=== PATIENT | female | born 1955 | race Caucasian/White ===

== ENCOUNTER → 2018-08-28 | Outpatient (CLI) | payer OTHER ==
[2018-08-19 11:12] VITALS: BP 126/66
[~2018-08-28] MED LIST: HYDR-2761 PO
== END | disposition home or self-care (01) ==
LOC: PMGWOUND 08:48
PROVIDERS: ATTEND Emergency Medicine Undersea and Hyperbaric Medicine
DX: L97.222 Non-pressure chronic ulcer of left calf with fat layer exposed (principal); I87.2 Venous insufficiency (chronic) (peripheral); Z90.49 Acquired absence of other specified parts of digestive tract
CPT/HCPCS: 11042; 11045

== ENCOUNTER → 2018-08-31 | Outpatient (CLI) | payer OTHER ==
[2018-08-19 11:12] VITALS: BP 126/66
== END | disposition home or self-care (01) ==
LOC: PMGWOUND 11:26
PROVIDERS: ATTEND Emergency Medicine Undersea and Hyperbaric Medicine
DX: L97.222 Non-pressure chronic ulcer of left calf with fat layer exposed (principal); I87.2 Venous insufficiency (chronic) (peripheral); Z90.49 Acquired absence of other specified parts of digestive tract
CPT/HCPCS: 11042; 11045; 29581

== ENCOUNTER → 2018-09-06 | Outpatient (CLI) | payer OTHER ==
[2018-08-19 11:12] VITALS: BP 126/66
--- NOTE | 2018-09-06 16:25 | RAD ---
Left lower extremity venous insufficiency ultrasound exam, 09/06/2018: HISTORY: Nonhealing left palacio ulcer Duplex evaluation of the saphenous veins in the left lower extremity was performed including grayscale, color-flow and spectral Doppler analysis. There is significant reflux in the left greater saphenous vein from the level of the groin down through the proximal calf. The greater saphenous vein cannot be visualized distal to this level. Near the saphenofemoral junction level the greater saphenous vein measures 1.1 cm and demonstrates a reflux time of 2.5 seconds. There are prominent venous varicosities in the distal thigh and lower leg which extend into the region of the patient's wound. The lesser saphenous vein in the left calf is small, tortuous and poorly visualized. Incidental note is made of a 5.6 x 1.5 x 4.1 cm fluid collection in the popliteal fossa compatible with a Frausto's cyst. IMPRESSION: 1. Significant reflux in the left greater saphenous vein as described above. 2. Moderate superficial varicosities in the distal thigh and lower leg. 3. Moderate sized popliteal cyst. Electronically signed by: Alex Sin MD (09/06/2018 4:22 PM) [facility]
== END | disposition home or self-care (01) ==
LOC: US 14:52
PROVIDERS: ATTEND Emergency Medicine Undersea and Hyperbaric Medicine
DX: L97.222 Non-pressure chronic ulcer of left calf with fat layer exposed (principal); M71.22 Synovial cyst of popliteal space [Baker], left knee; I83.92 Asymptomatic varicose veins of left lower extremity
CPT/HCPCS: 93971

== ENCOUNTER → 2018-09-12 | Outpatient (CLI) | payer OTHER ==
[2018-08-19 11:12] VITALS: BP 126/66
== END | disposition home or self-care (01) ==
LOC: PMGWOUND 11:17
PROVIDERS: ATTEND Emergency Medicine Undersea and Hyperbaric Medicine
DX: L97.222 Non-pressure chronic ulcer of left calf with fat layer exposed (principal); I87.2 Venous insufficiency (chronic) (peripheral); Z90.49 Acquired absence of other specified parts of digestive tract
CPT/HCPCS: 29581; 97597

== ENCOUNTER → 2018-09-19 | Outpatient (CLI) | payer OTHER ==
[2018-08-19 11:12] VITALS: BP 126/66
== END | disposition home or self-care (01) ==
LOC: PMGWOUND 12:45
PROVIDERS: ATTEND Emergency Medicine Undersea and Hyperbaric Medicine
DX: L97.222 Non-pressure chronic ulcer of left calf with fat layer exposed (principal); I87.2 Venous insufficiency (chronic) (peripheral); Z90.49 Acquired absence of other specified parts of digestive tract
CPT/HCPCS: 29581

== ENCOUNTER → 2018-09-26 | Outpatient (CLI) | payer OTHER ==
[2018-08-19 11:12] VITALS: BP 126/66
== END | disposition home or self-care (01) ==
LOC: PMGWOUND 12:32
PROVIDERS: ATTEND Emergency Medicine Undersea and Hyperbaric Medicine
DX: L97.222 Non-pressure chronic ulcer of left calf with fat layer exposed (principal); I87.2 Venous insufficiency (chronic) (peripheral); Z90.49 Acquired absence of other specified parts of digestive tract
CPT/HCPCS: 11042; 29581

== ENCOUNTER → 2018-10-03 | Outpatient (CLI) | payer OTHER ==
[2018-08-19 11:12] VITALS: BP 126/66
== END | disposition home or self-care (01) ==
LOC: PMGWOUND 11:30
PROVIDERS: ATTEND Emergency Medicine Undersea and Hyperbaric Medicine
DX: L97.222 Non-pressure chronic ulcer of left calf with fat layer exposed (principal); I87.2 Venous insufficiency (chronic) (peripheral); Z91.040 Latex allergy status; Z88.8 Allergy status to other drugs, medicaments and biological substances; Z90.49 Acquired absence of other specified parts of digestive tract
CPT/HCPCS: 11042; 29581

== ENCOUNTER → 2018-10-05 | Outpatient (CLI) | payer OTHER ==
[2018-08-19 11:12] VITALS: BP 126/66
[~2018-10-05] MED LIST changes: +LIDOCAINE 1%/EPI 1:100,000 50 ML, SODIUM BICARBONATE VIAL 5 MEQ in IV NORMAL SALINE 100... SQ STA
--- NOTE | 2018-10-05 11:36 | RAD ---
MR#: [id number] Date of Study: 10/05/2018 Ordering Physician: ANURAG RODRIGUEZ, Referring Physician: ANURAG RODRIGUEZ, Tech: Namita Valera RDMS, REJIT, RTR APPROVED REPORT Patient Location : OUT-PATIENT Indications Lower Extremity Pain : Right Lower Extremity Edema : Right Greater Saphenous Veins (GSV) Significant venous relux noted in the RIGHT GSV at the following levels : Superficial Femoral Junctio n, Proximal Thigh, Mid Thigh, Distal Thigh Findings Grayscale images of the right saphenofemoral junction and greater and lesser saphenous veins do not r eveal any obvious evidence of thrombus. There is a large incidental Frausto cyst noted on the right side measuring 7.5 x 5 x 1.9 cm. The right great saphenous vein measures approximately 5 mm in greatest diameter and has a reflux time of approximately 2.8 seconds. There is a incompetent kier drier noted approximately 18 centimeters u p from the ankle. The kier drier has a reflux time of 2.2 seconds and measures approximate 6 mm. The right lesser saphenous vein does not show any evidence of reflux. Critical Notification Critical Value: No <Conclusion> 1. Positive for reflux in the right greater saphenous vein and kier drier as described above. Signed by : Nickolas Bee, Electronically Approved : 10/05/2018 11:35:49
--- NOTE | 2018-10-05 11:58 | CARD ---
MR#: [id number] Date of Study: 10/05/2018 Ordering Physician: ANURAG RODRIGUEZ, Referring Physician: ANURAG RODRIGUEZ Tech: Lissa Muro RDCS APPROVED REPORT EXAM: Two-dimensional and M-mode echocardiogram with Doppler and color Doppler. Other Information Quality : AverageHR: 76bpm Rhythm : NSR INDICATION Venous Insufficiency 2D DIMENSIONS RVDd2.8 (2.9-3.5cm)Left Atrium(2D)3.3 (1.6-4.0cm) IVSd0.9 (0.7-1.1cm)Aortic Root(2D)3.0 (2.0-3.7cm) LVDd4.9 (3.9-5.9cm)LVOT Diameter2.0 (1.8-2.4cm) PWd1.0 (0.7-1.1cm)LVDs3.4 (2.5-4.0cm) FS (%) 30.2 %SV63.7 ml LVEF(%)57.4 (>50%) M-Mode DIMENSIONS Left Atrium(MM)3.79 (2.5-4.0cm)Aortic Root3.07 (2.2-3.7cm) Aortic Valve AoV Peak Shade.123.2cm/sAoV VTI26.4cm AO Peak GR.6.1mmHgLVOT Peak Shade.76.9cm/s AO Mean GR.3mmHgAVA (VMAX)1.94cm2 JAIRO (VTI)2.00cm2 Mitral Valve MV E Uwvqvxjp81.2cm/sMV DECEL PYOV580ee MV A Sduqxilx12.8cm/sE/A Ratio1.0 MV A Fxlcuozq458xn Pulmonary Valve PV Peak Krvyqfrq836.6cm/s Tricuspid Valve TR P. Ymrnohxd270rg/sRAP IOVRNUZY1qgYi TR Peak Gr.20jkNhRHUQ38prSq LEFT VENTRICLE The left ventricle is normal size. There is normal left ventricular wall thickness. The left ventricu lar systolic function is normal and the ejection fraction is within normal range. The Ejection Fracti on is 55-60%. There is normal LV segmental wall motion. Transmitral Doppler flow pattern is Grade I-a bnormal relaxation pattern. RIGHT VENTRICLE The right ventricle is normal size. There is normal right ventricular wall thickness. The right ventr icular systolic function is normal. ATRIA The left atrium size is normal. The right atrium size is normal. The interatrial septum is intact wit h no evidence for an atrial septal defect or patent foramen ovale as noted on 2-D or Doppler imaging. AORTIC VALVE The aortic valve is normal in structure and function. The aortic valve is trileaflet. Doppler and Col or Flow revealed no significant aortic regurgitation. There is no significant aortic valvular stenosi s. MITRAL VALVE The mitral valve is normal in structure and function. There is no evidence of mitral valve prolapse. There is no mitral valve stenosis. Doppler and Color Flow revealed no mitral valve regurgitation note d. TRICUSPID VALVE The tricuspid valve is normal in structure and function. Doppler and Color Flow revealed trace tricus pid regurgitation. The PA pressure was estimated at 25 mmHg. There is no tricuspid valve prolapse or vegetation. There is no tricuspid valve stenosis. PULMONIC VALVE The pulmonic valve is not well visualized. GREAT VESSELS The aortic root is normal in size. The ascending aorta is normal in size. The IVC is normal in size a nd collapses >50% with inspiration. PERICARDIAL EFFUSION There is no evidence of significant pericardial effusion. Critical Notification Critical Value: No <Conclusion> The left ventricular systolic function is normal and the ejection fraction is within normal range. Th e Ejection Fraction is 55-60%. There is normal LV segmental wall motion. Signed by : Nickolas Bee, Electronically Approved : 10/05/2018 11:57:48
== END | disposition home or self-care (01) ==
LOC: US 10:54
PROVIDERS: ATTEND Internal Medicine Cardiovascular Disease
DX: I87.2 Venous insufficiency (chronic) (peripheral) (principal); R00.8 Other abnormalities of heart beat
CPT/HCPCS: 93306; 93971

== ENCOUNTER → 2018-10-09 | Outpatient (CLI) | payer OTHER ==
[2018-08-19 11:12] VITALS: BP 126/66
[~2018-10-09] MED LIST changes: -LIDOCAINE 1%/EPI 1:100,000 50 ML, SODIUM BICARBONATE VIAL 5 MEQ in IV NORMAL SALINE 100... SQ STA
--- NOTE | 2018-10-09 13:42 | CARD ---
MR#: [id number] Date of Study: 10/09/2018 Ordering Physician: ANURAG MARTINEZ, Referring Physician: ANURAG MARTINEZ, Tech: Namita Valera RVT; Jeremie VAUGHN LP APPROVED REPORT Patient StatusOUT-PATIENT Manager Star: Namita Valera RVT; Jeremie BRYSON; LENY Procedure(s) performed: Endovenous radiofrequency ablation of the Left greater saphenous vein INDICATION FOR PROCEDURE The indication(s) include : Symptomatic Chronic Venous Insufficiency with Varicose Veins, lower extre mity pain, edema and venous ulcer. PROCEDURE NARRATIVE The patient was transferred to the procedure suite and the insufficient saphenous vein was mapped by ultrasound and diagrammed on the underlying skin. The depth and diameter of the vein(s) to be treate d was documented. The varicose tributary veins and suitable access sites were identified and mapped as well. The patient was then positioned supine on the procedure table. The entire limb was sterile ly prepared and the lower extremity and treatment table were sterilely draped. The RF catheter was placed on the sterile field, flushed and wiped down, prepared, and connected by a sterile cable. The patient was placed in reverse-Trendelenburg position and local anesthesia was instilled in the sk in overlying the access site. A skin incision was made overlying the identified and mapped greater s aphenous vein entry site. The vein was punctured through the incision and using ultrasound guidance and the Seldinger technique a guide wire was introduced through the needle which was then exchanged o elsie the guide wire for a 7 F sheath. The guide wire was removed and the sheath was flushed. The RF probe was placed into the vein through the sheath and positioned at a point just distal (about 0.5 to 1 cm) to the entrance point of the superficial epigastric artery using ultrasound guidance. After the RF probe position was verified by the ultrasound, tumescent anesthesia was infiltrated, und er ultrasound guidance, precisely into the perivenuus compartment along the entire length of vein fro m the entry site to the saphenofemoral junction until a "halo" of fluid was noted around the vein. The patient was then placed in Trendelenburg position. After the RF probe position was again confirm ed with ultrasound imaging, moderate external compression was applied over the RF heating element, an d RF energy was applied. The probe was withdrawn sequentially in 6.5 cm steps with slight overlap of 7 cm segments of ablation and monitored to keep the probe temperature at 120 degrees Celsius and the generator output well below its maximum power. Treatment Segments: 7 Total Length: 32.5 cm. To santos Ablation time: 2 minutes. Repeat ultrasound of the saphenous vein was performed confirming successful treatment. The catheter and sheath were withdrawn and hemostasis established with direct pressure. After assuring hemostasis , the skin incision over the saphenous vein was closed with a bandage and an external compression ana ssing was applied from the level of the foot to the most proximal level of the thigh. Signed by : Anurag Martinez, Electronically Approved : 10/09/2018 13:41:41
== END | disposition home or self-care (01) ==
LOC: VNUS 12:19
PROVIDERS: ATTEND Internal Medicine Cardiovascular Disease
DX: I83.028 Varicose veins of left lower extremity with ulcer other part of lower leg (principal); L97.828 Non-pressure chronic ulcer of other part of left lower leg with other specified severity
CPT/HCPCS: 36475

== ENCOUNTER → 2018-10-10 | Outpatient (CLI) | payer OTHER ==
[2018-08-19 11:12] VITALS: BP 126/66
== END | disposition home or self-care (01) ==
LOC: PMGWOUND 11:43
PROVIDERS: ATTEND Emergency Medicine Undersea and Hyperbaric Medicine
DX: L97.222 Non-pressure chronic ulcer of left calf with fat layer exposed (principal); I87.2 Venous insufficiency (chronic) (peripheral); Z90.49 Acquired absence of other specified parts of digestive tract; Z88.8 Allergy status to other drugs, medicaments and biological substances
CPT/HCPCS: 29581

== ENCOUNTER → 2018-10-11 | Outpatient (CLI) | payer OTHER ==
[2018-08-19 11:12] VITALS: BP 126/66
--- NOTE | 2018-10-11 12:21 | RAD ---
MR#: [id number] Date of Study: 10/11/2018 Ordering Physician: ANURAG RODRIGUEZ, Referring Physician: ANURAG RODRIGUEZ, Tech: Devonte Kirby MBA, RDMS, RVT, RDCS, RTR APPROVED REPORT Left Lower Extremity Venous Study for DVT Patient Location: OUT-PATIENT Indications post lt gsv ablation Vein Imaging (Left) CFV (L): Compressible SFJ (L): Compressible FEM (L): Compressible POP (L): Compressible DFV (L): Compressible PTV (L): Spontaneous GSV (L): Absent Flow Peroneals (L): Spontaneous Findings Grayscale images of the left common femoral vein, popliteal, superficial femoral, greater saphenous v eins were obtained. No obvious thrombus is noted in the deep veins. The greater saphenous vein is not able for thrombus consistent with recent ablation. Normal spontaneous flow is noted below the knee an d the deep veins. The right common femoral vein and saphenofemoral junction are free of DVT. Incidental note is made of a left-sided Frausto's cyst measuring a proximally 6.3 x 1.3 cm. Critical Notification Critical Value: No <Conclusion> 1. Negative for DVT in the left lower extremity. 2. Successful GSV ablation on the left side 3. Incidental note is made of a Frausto's cyst on the left side. Signed by : Nickolas Bee, Electronically Approved : 10/11/2018 12:21:37
== END | disposition home or self-care (01) ==
LOC: US 10:27
PROVIDERS: ATTEND Internal Medicine Cardiovascular Disease
DX: I87.2 Venous insufficiency (chronic) (peripheral) (principal); M71.22 Synovial cyst of popliteal space [Baker], left knee; Z88.8 Allergy status to other drugs, medicaments and biological substances
CPT/HCPCS: 93971

== ENCOUNTER → 2018-10-30 | Outpatient (CLI) | payer OTHER ==
[2018-08-19 11:12] VITALS: BP 126/66
[~2018-10-30] MED LIST changes: +LIDOCAINE 1%/EPI 1:100,000 50 ML, SODIUM BICARBONATE VIAL 5 MEQ in IV NORMAL SALINE 100... SQ STA
--- NOTE | 2018-10-30 13:16 | CARD ---
MR#: [id number] Date of Study: 10/30/2018 Ordering Physician: ANURAG MARTINEZ, Referring Physician: ANURAG MARTINEZ, Tech: Namita Valera RVT; Jeremie BRYSON;LENY APPROVED REPORT Patient StatusOUT-PATIENT Violin Teacher: Namita Valera RVT; Jeremie BRYSON;LENY Procedure(s) performed: Endovenous radiofrequency ablation of the Right greater saphenous vein. INDICATION FOR PROCEDURE The indication(s) include : Symptomatic Chronic Venous Insufficiency with Varicose Veins, lower extre mity pain and edema. PROCEDURE NARRATIVE The patient was transferred to the procedure suite and the insufficient saphenous vein was mapped by ultrasound and diagrammed on the underlying skin. The depth and diameter of the vein(s) to be treate d was documented. The varicose tributary veins and suitable access sites were identified and mapped as well. The patient was then positioned supine on the procedure table. The entire limb was sterile ly prepared and the lower extremity and treatment table were sterilely draped. The RF catheter was placed on the sterile field, flushed and wiped down, prepared, and connected by a sterile cable. The patient was placed in reverse-Trendelenburg position and local anesthesia was instilled in the sk in overlying the access site. A skin incision was made overlying the identified and mapped greater s aphenous vein entry site. The vein was punctured through the incision and using ultrasound guidance and the Seldinger technique a guide wire was introduced through the needle which was then exchanged o elsie the guide wire for a 7 F sheath. The guide wire was removed and the sheath was flushed. The RF probe was placed into the vein through the sheath and positioned at a point just distal (about 0.5 to 1 cm) to the entrance point of the superficial epigastric artery using ultrasound guidance. After the RF probe position was verified by the ultrasound, tumescent anesthesia was infiltrated, und er ultrasound guidance, precisely into the perivenuus compartment along the entire length of vein fro m the entry site to the saphenofemoral junction until a "halo" of fluid was noted around the vein. The patient was then placed in Trendelenburg position. After the RF probe position was again confirm ed with ultrasound imaging, moderate external compression was applied over the RF heating element, an d RF energy was applied. The probe was withdrawn sequentially in 6.5 cm steps with slight overlap of 7 cm segments of ablation and monitored to keep the probe temperature at 120 degrees Celsius and the generator output well below its maximum power. Treatment Segments: 7 Total Length: 32.5 cm. To santos Ablation time: 3 minutes. Repeat ultrasound of the saphenous vein was performed confirming successful treatment. The catheter and sheath were withdrawn and hemostasis established with direct pressure. After assuring hemostasis , the skin incision over the saphenous vein was closed with a bandage and an external compression ana ssing was applied from the level of the foot to the most proximal level of the thigh. Signed by : Anurag Martinez, Electronically Approved : 10/30/2018 13:15:46
== END | disposition home or self-care (01) ==
LOC: VNUS 12:22
PROVIDERS: ATTEND Internal Medicine Cardiovascular Disease
DX: I83.811 Varicose veins of right lower extremity with pain (principal); I87.2 Venous insufficiency (chronic) (peripheral); Z88.8 Allergy status to other drugs, medicaments and biological substances; Z91.040 Latex allergy status
CPT/HCPCS: 36475; J3490; J7030

== ENCOUNTER → 2018-11-01 | Outpatient (CLI) | payer OTHER ==
[2018-08-19 11:12] VITALS: BP 126/66
[~2018-11-01] MED LIST changes: -LIDOCAINE 1%/EPI 1:100,000 50 ML, SODIUM BICARBONATE VIAL 5 MEQ in IV NORMAL SALINE 100... SQ STA
--- NOTE | 2018-11-01 17:30 | RAD ---
MR#: [id number] Date of Study: 11/01/2018 Ordering Physician: ANURAG RODRIGUEZ, Referring Physician: ANURAG RODRIGUEZ, Tech: Devonte Kirby MBA, RDMS, RVT, RDCS, RTR APPROVED REPORT Right Lower Extremity Venous Study for DVT Patient Location: OUT-PATIENT Indications POST RT GSV ABLATION Vein Imaging (Right) CFV (R): Compressible SFJ (R): Compressible FEM (R): Compressible POP (R): Compressible DFV (R): Compressible PTV (R): Spontaneous GSV (R): Absent Flow Peroneals (R): Spontaneous Findings Grayscale images of the right greater saphenous vein demonstrate thrombus consistent with recent abla tion therapy. The deep veins were evaluated from the common femoral vein to the below-knee vessels and they appear to be compressible without any limitation to flow. Normal color Doppler imaging is noted. A incidental note is made of a fluid collection in the posterior aspect of the right knee likely cons istent with a Frausto's cyst measuring 6.3 x 3.8 x 1.1 cm. Critical Notification Critical Value: No <Conclusion> 1. Successful right great saphenous vein ablation. 2. No DVT in the right lower extremity Signed by : Nickolas Bee, Electronically Approved : 11/01/2018 17:29:55
== END | disposition home or self-care (01) ==
LOC: US 11:44
PROVIDERS: ATTEND Internal Medicine Cardiovascular Disease
DX: I87.2 Venous insufficiency (chronic) (peripheral) (principal)
CPT/HCPCS: 93971

== ENCOUNTER → 2019-06-22 | Outpatient (CLI) | payer OTHER ==
[2018-08-19 11:12] VITALS: BP 126/66
--- NOTE | 2019-06-22 13:45 | RAD ---
MR#: [id number] Date of Study: 06/22/2019 Ordering Physician: ANURAG RODRIGUEZ, Referring Physician: ANURAG RODRIGUEZ, Tech: Namita Valera RDMS, REJIT, RTR APPROVED REPORT Patient Location : OUT-PATIENT Indications Venous Ulcers Skin Changes Wound anterior Left palacio; history of Left GSV ablation; Evaluate for Perforators at wound Perforators Thigh Perforators Calf Perforators Right: cm up from medial heel cm back from the anterior border of tibia diameter 4.3mm. Findings Limited study only to evaluate perforators There is a left medial ankle l tacker at the level of the wound measuring 4.3 mm with a reflux time of 2.9 seconds. Please see electroencephalograph technician worksheet for exact location. Critical Notification Critical Value: No <Conclusion> 1. Positive for reflux in a left calf l tacker near existing wound. Signed by : Nickolas Bee, Electronically Approved : 06/22/2019 13:45:02
== END | disposition home or self-care (01) ==
LOC: US 12:17
PROVIDERS: ATTEND Internal Medicine Cardiovascular Disease
DX: I87.2 Venous insufficiency (chronic) (peripheral) (principal); L97.828 Non-pressure chronic ulcer of other part of left lower leg with other specified severity
CPT/HCPCS: 93971